=== PATIENT | female | born 1975 | race Caucasian/White ===

== ENCOUNTER 2019-05-01 13:40 | Day surgery (SDC) | payer BC ==
[~2019-05-01] VITALS: Ht 167.6 cm; Wt 110.7 kg
[~2019-05-01 13:40] MED LIST: ALBU90OI6 INH; FAMO40 PO; FLUT1DIS2 INH; PRED20 PO
--- NOTE | 2019-05-01 14:10 | NUR ---
05/01/19 1410 Lalita Pollock 1ST IV ATTEMPT IN RW UNSUCCESSFUL, STARTED BY BETH BISWAS
== END 2019-05-01 15:05 | disposition home or self-care (01) ==
LOC: ORSCSDS 13:40
PROVIDERS: Student in an Organized Health Care Education/Training Program
PROC: 0DB68ZX Excision of Stomach, Via Natural or Artificial Opening Endoscopic, Diagnostic (ICD-10-PCS; principal; 2019-05-01 14:30)
PROC: 0DB98ZX Excision of Duodenum, Via Natural or Artificial Opening Endoscopic, Diagnostic (ICD-10-PCS; principal; 2019-05-01 14:30)
DX: R11.2 Nausea with vomiting, unspecified (principal); K29.00 Acute gastritis without bleeding; K29.80 Duodenitis without bleeding; R10.9 Unspecified abdominal pain; J45.909 Unspecified asthma, uncomplicated; Z79.899 Other long term (current) drug therapy
CPT/HCPCS: 88305; 88342; J2704; J7120

== ENCOUNTER → 2019-11-06 | Outpatient (CLI) | payer BC | END | disposition home or self-care (01) | LOC: LAB 12:50 → LAB SHORT 12:50 | DX: R10.9 Unspecified abdominal pain (principal) | CPT/HCPCS: 87086 ==

== ENCOUNTER 2020-12-18 14:13 | Emergency (ER) | payer BC ==
[~2020-12-18] VITALS: Ht 175.3 cm; Wt 117.9 kg
[2020-12-18 15:19] LABS: BASOPHILS ABSOLUTE AUTO 0.07 K/mm3 (0.00-0.23); BASOPHILS PERCENT AUTO 0 % (0-2); EOSINOPHILS ABSOLUTE AUTO 0.01 K/mm3 (0.00-0.68); EOSINOPHILS PERCENT AUTO 0 % (0-6); Hematocrit 43.7 % (33.0-51.0); Hemoglobin 14.7 g/dL (11.5-16.0); IMMATURE GRAN ABSOLUTE AUTO 0.09 K/mm3 (0.00-0.10); IMMATURE GRAN PERCENT AUTO 1 % (0-1); LYMPHOCYTES PERCENT AUTO 10 % (21-46); MONOCYTES PERCENT AUTO 4 % (4-13); Mean Corpuscular HGB 26.9 pg (26.0-34.0); Mean Corpuscular HGB Conc 33.6 g/dL (31.5-36.5); Mean Corpuscular Volume 80 fL (80-100); Mean Platelet Volume 8.8 fL (9.1-12.4); NEUTROPHILS ABSOLUTE AUTO 16.46 K/mm3 (1.96-9.15); NEUTROPHILS PERCENT AUTO 85 % (41-73); Platelet Count 439 K/mm3 (150-400); RDW Coefficient Variation 14.2 % (11.7-14.2); RDW Standard Deviation 40.7 fL (35.1-46.3); Red Blood Cell Count 5.47 M/mm3 (3.80-5.20); White Blood Cell Count 19.33 K/mm3 (4.00-11.30)
[2020-12-18 15:25] LABS: Source, Urine Clean Catch
[2020-12-18 15:29] LABS: Appearance, Urine Clear (Clear); Bilirubin, Urine Neg (Neg); Blood, Urine 5+ (Neg); Color, Urine Yellow (P-Yellow); Glucose Qualitative, Urine Neg (Neg); Ketones, Urine 2+ (Neg); Leukocyte Esterase, Urine 1+ (Neg); Nitrite, Urine Neg (Neg); Protein, Urine 2+ (Neg); Specific Gravity, Urine 1.015 (1.003-1.022); Urobilinogen, Urine NORM (Normal)
[2020-12-18 15:37] LABS: Alanine Aminotransfer (ALT/SGP 29 U/L (12-78); Albumin, Blood 3.7 g/dL (3.4-5.0); Alk Phos 68 U/L (50-136); Anion Gap 7 mmol/L (6-16); Aspartate Aminotrans (AST/SGOT 18 U/L (12-37); Bilirubin, Total 0.7 mg/dL (0.1-1.0); Blood Urea Nitrogen 13 mg/dL (8-24); Bun/Creatinine Ratio 15.9 (12.0-20.0); CO2, Blood 30 mmol/L (21-32); Calcium, Blood 8.7 mg/dL (8.5-10.1); Chloride, Blood 97 mmol/L (98-108); Creatinine, Blood 0.82 mg/dL (0.40-1.00); Globulin, Blood 3.7 g/dL (2.2-4.0); Glomerular Filtration Rate >60 (60-); Glucose, Blood 121 mg/dL (70-99); Sodium, Blood 134 mmol/L (136-145); Total Protein, Blood 7.4 g/dL (6.4-8.2)
[2020-12-18] MEDS ORDERED: VITAMIN D325 MC3 PO (15:49)
[2020-12-18] MEDS ORDERED: ZINC15 PO (15:50)
[2020-12-18] MEDS ORDERED: MULVITA PO (15:50)
[2020-12-18 15:59] LABS: Bacteria Mod /hpf; Red Blood Cells, Urine 25-50 /hpf (0-2); Squamous Epithelial Cells Few /hpf (Few)
[2020-12-18 16:00] LABS: Mucus Light (0-Heavy)
[2020-12-18] MEDS ORDERED: ONDA4ODT MM (17:06)
== END 2020-12-18 17:54 | disposition home or self-care (01) ==
LOC: ER 14:13
PROVIDERS: Physician Assistant
DX: R11.2 Nausea with vomiting, unspecified (principal); R10.9 Unspecified abdominal pain; J45.909 Unspecified asthma, uncomplicated; Z79.899 Other long term (current) drug therapy
CPT/HCPCS: 36415; 74177; 80053; 81001; 81025; 83690; 85025; 87086; 96374-59; 99284-25; J2405; J7030; Q9967